=== PATIENT | male | born 1975 | race Caucasian/White ===

== ENCOUNTER 2023-08-09 08:27 | Emergency (ER) | payer OTHER ==
--- OUTSIDE RECORDS SUMMARY | 2023-08-09 08:30 | XMS REPORT | Continuity of Care Document ---
:1975 Author Organization [facility] t Address [address] [place] [address] Care Team Providers Name Role Phone Uma Johansen Attending Clinician Unavailable Kenrick Celaya Attending Clinician Unavailable Kenrick Celaya Admitting Clinician Unavailable UMA JOHANSEN Admitting Clinician Unavailable Payers Payer Name Policy Type Policy Number Effective Date Expiration Date S [place] [id number] 2021 [facility] 00:[facility]00 - [facility]) [place] [address] [id number] 2021 [facility] 00:00:00 - [facility]) [place] [address] [id number] 2020 2021 [facility] 00:00:00 00:00:00 [place] [address] [id number] 2020 2021 [facility] 00:00:00 00:00:00 [facility] Problems Condition Condition Condition Status Onset Resolution Last Treating Co mments Source Name Details Category Date Date Treatment Clinician Date Hypertensi Hypertensi Problem Active C ommon on on [facility] Disturbanc Disturbanc Problem Active C ommon e in sleep e in sleep Sp cici behavior behavior - [facility] [id number] Hyperglyce Problem Active Com mon shelly [facility] Counseling Tobacco Problem Active Comm on about abuse Spirit tobacco counseling - [facility] use [facility] [id number] Prediabete Problem Active Co mmon s Spirit [facility] [id number] Abnormal Problem Active Comm on RBC Spirit indices [facility] [id number] Abnormal Problem Active Comm on liver [facility] function - [facility] test [facility] [id number] Elevated Problem Active Comm on serum Spirit creatinine [facility] Allergies, Adverse Reactions, Alerts Allergy Allergy Status Severity Reaction(s) Onset Inactive Treating Comm ents Source Name Type Date Date Clinician No Known DA Active U 2020-10 [facility] 00 [facility] No Known DA Active U 2020-10 [facility] Allergie 0-22 [facility] 00 [facility] Social History Social Habit Start Date Stop Date Quantity Comments Source History of Tobacco Current Smoker Co mmon [facility] - [facility] Use [facility] Sex Assigned At Com [facility] Smoking Status Start Date Stop Date Source Current Smoker 2021-12-12 00:00:00 Common Spiri t [facility] Medications Ordered Filled Start Stop Current Ordering Indication Dosage Frequency Signature Comments Components Source Medication Medication Date Date Medication? Clinician (SIG) Name Name Micardis Micardis Yes Roxane 1 tablet Common HCT HCT 6-05 Millender Spirit 00:00: - [facility] 00 [facility] Micardis Micardis No 1{table QD Micardis HCT 80-25 HCT 80-25 6-05 t} HCT 80-25 MG MG 00:00: MG 00 Micardis Micardis No 1{table QD Micardis HCT 80-25 HCT 80-25 6-05 t} HCT 80-25 MG MG 00:00: MG 00 Losartan Losartan 2018-0 Yes Roxane 1 tablet Common Potassium-H Potassium-H 9-24 Millender Spirit CTZ CTZ 00:00: - [facility] 00 [facility] Micardis Micardis No 1{table QD Micardis HCT 80-25 HCT 80-25 t} HCT 80-25 MG MG MG Triamcinolo Triamcinolo No 1{appli BID Triamcinol ne & ne & cation} one & Emollient Emollient Emollient 0.1 % 0.1 % 0.1 % PriLOSEC 20 PriLOSEC 20 No 1{capsu QD PriLOSEC MG MG le} 20 MG Ketoconazol Ketoconazol No 1{appli QD Ketoconazo e 2 % e 2 % cation_ le 2 % to_affe cted_ar ea} Micardis Micardis No 1{table QD Micardis HCT 80-25 HCT 80-25 t} HCT 80-25 MG MG MG Triamcinolo Triamcinolo No 1{appli BID Triamcinol ne & ne & cation} one & Emollient Emollient Emollient 0.1 % 0.1 % 0.1 % Micardis Micardis No 1{table QD Micardis HCT 80-25 HCT 80-25 t} HCT 80-25 MG MG MG PriLOSEC 20 PriLOSEC 20 No 1{capsu QD PriLOSEC MG MG le} 20 MG Hydrochloro Hydrochloro Yes Roxane 1 tablet Common thiazide thiazide Millender in the Spirit morning - [facility] Amoxicillin Amoxicillin Yes Roxane 1 tablet Common -Pot -Pot [facility]ender Spirit Clavulanate Clavulanate - [facility] Ketoconazol Ketoconazol Yes Roxane 1 Common e e Millender applicatio Spir it n to - [facility] affected [facility] Diovan Diovan Yes Roxane 1 tablet Common Millender Spirit - [facility] Prilosec Prilosec Yes Roxane 1 capsule C ommon Millender Spirit - [facility] Triamcinolo Triamcinolo Yes Roxane 1 Common ne & ne & Millender applicatio Spir it Emollient Emollient n - [facility] Tessalon Tessalon Yes Roxane 1 capsule C ommon Perles Perles Millender as needed S pirit - [facility] Diovan HCT Diovan HCT Yes Roxane 1 tablet Common Millender [facility] Triamcinolo Triamcinolo No 1{appli BID Triamcinol ne & ne & cation} one & Emollient Emollient Emollient 0.1 % 0.1 % 0.1 % PriLOSEC 20 PriLOSEC 20 No 1{capsu QD PriLOSEC MG MG le} 20 MG Ketoconazol Ketoconazol No 1{appli QD Ketoconazo e 2 % e 2 % cation_ le 2 % to_affe cted_ar ea} Triamcinolo Triamcinolo No 1{appli BID Triamcinol ne & ne & cation} one & Emollient Emollient Emollient 0.1 % 0.1 % 0.1 % PriLOSEC 20 PriLOSEC 20 No 1{capsu QD PriLOSEC MG MG le} 20 MG Ketoconazol Ketoconazol No 1{appli QD Ketoconazo e 2 % e 2 % cation_ le 2 % to_affe cted_ar ea} PriLOSEC 20 PriLOSEC 20 No 1{capsu QD PriLOSEC MG MG le} 20 MG Ketoconazol Ketoconazol No 1{appli QD Ketoconazo e 2 % e 2 % cation_ le 2 % to_affe cted_ar ea} Vital Signs Vital Name Observation Time Observation Value Comments Source height 2021-12-13 08:20:00 71.00 [in_i] [facility] weight 2021-12-13 08:20:00 178 [lb_av] [facility] temperature 2021-12-13 08:20:00 98.6 [degF] [facility] bmi 2021-12-13 08:20:00 24.82 kg/m2 [facility] oximetry 2021-12-13 08:20:00 97 % [facility] respiratory rate 2021-12-13 08:20:00 18 /min Comm on [facility] blood pressure 2021-12-13 08:20:00 138 mm[Hg] Common [facility] - systolic [facility] blood pressure 2021-12-13 08:20:00 80 mm[Hg] Common Spirit - diastolic [facility] height 2021-06-13 14:20:00 71.00 [in_i] Common [facility] weight 2021-06-13 14:20:00 177 [lb_av] Common [facility] temperature 2021-06-13 14:20:00 97.4 [degF] [facility] bmi 2021-06-13 14:20:00 24.68 kg/m2 [facility] oximetry 2021-06-13 14:20:00 99 % [facility] respiratory rate 2021-06-13 14:20:00 16 /min Comm on [facility] blood pressure 2021-06-13 14:20:00 137 mm[Hg] Common [facility] - systolic [facility] blood pressure 2021-06-13 14:20:00 85 mm[Hg] Common Spirit - diastolic [facility] height 2020-12-14 09:00:00 71.00 [in_i] [facility] weight 2020-12-14 09:00:00 181.6 [lb_av] [facility] temperature 2020-12-14 09:00:00 98.1 [degF] Common [facility] bmi 2020-12-14 09:00:00 25.33 kg/m2 Common [facility] oximetry 2020-12-14 09:00:00 97 % [facility] respiratory rate 2020-12-14 09:00:00 18 /min Comm on [facility] blood pressure 2020-12-14 09:00:00 132 mm[Hg] Common [facility] - systolic [facility] blood pressure 2020-12-14 09:00:00 80 mm[Hg] Common [facility] - [facility] Procedures This patient has no known procedures. Encounters Start End Encounter Admission Attending Care Care Encounter Source Date/Time Date/Time Type Type Clinicians Facility Department ID 2023-04-16 Outpatient Gato STDAYANARA STLMLC [id number] Common 16:29:00 Uma 24123 [facility] 2023-03-26 Outpatient Gato STDAYANARA STLMLC [id number] Common 16:19:00 Uma [id number] [facility] 2022-06-10 Outpatient Gato STDAYANARA STLMLC [id number] Common 14:18:00 Uma 84552 [facility] 2021-11-13 Outpatient Gato STDAYANARA STLMLC [id number] Common 12:34:36 Uma 18044 [facility] 2021-11-13 Outpatient Gato STDAYANARA STLC [id number] Common 12:26:02 Uma [id number] [facility] 2021-12-13 2021-12-13 [facility] [id number] Co mmon 00:00:00 00:00:00 VISIT EST Spir it PT LEVEL 3 [facility] 2021-09-19 2021-09-20 Inpatient YURIDIA Mishra OBSE [id number] [facility] 07:27:00 11:24:00 Kenrick 08 [facility] 2021-08-09 2021-08-09 Outpatient JOSE ENRIQUE Celaya [facility] [id number] [facility] 18:49:00 18:49:00 Kenrick 03 [facility] 2021-08-09 2021-08-09 Outpatient DE Celaya LABO [id number] [facility] 16:57:00 16:57:00 Kenrick 00 [facility] 2021-08-09 2021-08-09 Inpatient YURIDIA Mishra SURG [id number] [facility] 13:30:00 13:30:00 Kenrick 64 [facility] 2021-08-09 2021-08-09 Outpatient YURIDIA Mishra RADI [id number] [facility] 10:21:00 10:21:00 Kenrick 40 [facility] 2021-07-18 2021-07-18 (TEL) STLMLC STLMLC [id number] Co mmon 00:00:00 00:00:00 Spirit - [facility] 2021-06-13 2021-06-13 OFFICE STLMLC STLMLC [id number] Co mmon 00:00:00 00:00:00 VISIT Spirit ESTAB PT - CHI LEVEL 4 [facility] 2021-05-06 2021-05-06 (TEL) STLMLC STLMLC [id number] Co mmon 00:00:00 00:00:00 Spirit - [facility] 2020-12-14 2020-12-14 OFFICE STLMLC STLMLC [id number] Co mmon 00:00:00 00:00:00 VISIT EST Spir it PT LEVEL 3 - [facility] 2019-09-23 2019-09-23 Out[facility] [id number] Common 11:00:00 11:00:00 t [facility] [address] [facility] 2019-08-23 2019-08-23 Outpatient [facility] [id number] Common 08:56:00 08:56:00 t [facility] [address] Sp[address] [facility] 2018-12-29 2018-12-29 Outpatient [facility] [id number] Common 16:30:00 16:30:00 t [facility] [address] Sp[address] [facility] 2018-10-07 2018-10-07 Outpatient [facility] [id number] Common 09:30:00 09:30:00 t [facility] [address] [facility] 2018-10-06 2018-10-06 Outpatient [facility] [id number] Common 14:50:00 14:50:00 t [facility] [address] [facility] 2018-07-09 2018-07-09 Outpatient [facility] [id number] Common 13:30:00 13:30:00 t [facility] [address] [facility] 2018-04-12 2018-04-12 Outpatient [facility] [id number] Common 08:34:00 08:34:00 [facility] Spir [address] Road [facility] 2018-04-09 2018-04-09 Outpatient Chano Maddent [id number] Common 15:15:00 15:15:[address] [facility] it Road [facility] 2018-03-12 2018-03-12 Outpatient Chano Maddent [id number] Common 10:05:00 10:05:00 [facility] it [facility] 2018-02-19 2018-02-19 Outpatient Chano Maddent [id number] Common 15:45:00 15:45:00 [facility] Results Test Description Test Time Test Comments Results Result Comments Source BASIC METABOLIC PANEL 2021-09-20 07:05:00 Test Item Value Reference Range Interpretation Comme nts SODIUM (test code = NA) 137 mmol/L 136-145 N POTASSIUM (test code = K) 4.5 mmol/L 3.5-5.1 N CHLORIDE (test code = CL) 100.0 mmol/L 98-107 N CARBON DIOXIDE (test code = 28.7 mmol/L 21-32 N CO2) GLUCOSE (test code = GLU) 95 mg/dL 70-110 N BLOOD UREA NITROGEN (test code 10 mg/dL 7-18 N = BUN) GLOMERULAR FILTRATION RATE 80.8 >60 U nit of measure: mL/min/1.73 (test code = GFR) [id number] e Range:Healthy Adults >90 mL/m in/1.73 m2 For Chronic Kidney Disease: Stage II Mild Decrea se in GFR 60-90 Stage III Moderate Decrease in GFR 30-59 Stage IV Severe Decre ase in GFR 15-29 Stage V K idney Failure <15 CREATININE (test code = CREAT) 1.00 mg/dL 0.55-1.30 N CALCIUM (test code = CA) 8.5 mg/dL 8.2-10.1 N CBC W/AUTO [id number] 05:55:00 Test Item Value Reference Range Interpretation Comments WHITE BLOOD CELL (test code = WBC) 12.6 K/mm3 5.7-10.5 H RED BLOOD CELL (test code = RBC) 3.46 M/mm3 4.2-5.4 L HEMOGLOBIN (test code = HGB) 12.0 g/dL 12-16 N HEMATOCRIT (test code = HCT) 35.1 % 37-47 L MEAN CELL VOLUME (test code = MCV) 101 fL 80-98 H MEAN CELL HGB (test code = MCH) 34.7 pg 27-34 H MEAN CELL HGB CONCENTRATION (test 34.2 g/dL 30.8-34.1 H code = MCHC) RED CELL DISTRIBUTION WIDTH (test 12.4 % 11-16 N code = RDW) PLT (test code = PLT) 251 K/mm3 130-400 N MEAN PLATELET VOLUME (test code = 11.0 fL 8.9-12.1 N MPV) NEUTROPHIL % (test code = NT%) 65.3 % 45-70 N LYMPHOCYTE % (test code = LY%) 22.7 % 20-40 N MONOCYTE % (test code = MO%) 9.0 % 3-10 N EOSINOPHIL % (test code = EO%) 1.3 % 1-5 N BASOPHIL % (test code = BA%) 0.6 % 0.0-1.1 N NEUTROPHIL # (test code = NT#) 8.23 K/mm3 2.00-7.50 H LYMPHOCYTE # (test code = LY#) 2.87 K/mm3 1.50-4.00 N MONOCYTE # (test code = MO#) 1.14 K/mm3 0.2-0.8 H EOSINOPHIL # (test code = EO#) 0.16 K/mm3 0.04-0.4 N BASOPHIL # (test code = BA#) 0.08 K/mm3 0.02-0.10 N MANUAL DIFF REQUIRED (test code = NO MANUAL DIFF MDIFF) NUCLEATED RED BLOOD CELL (test 0 % 0-0 N code = NRBC) C REACTIVE [id number] 22:10:00 Test Item Value Reference Range Interpretation Comments C REACTIVE PROTEIN (test code = < 0.2 mg/dL <0.9 CRP) ACUTE HEPATITIS [id number] 22:10:00 Test Item Value Reference Range Interpretation Comments AB HEPATITIS A IGM (test code = NONREACTIVE NONREACTIVE HAVMAB) AG HEPATITIS B SURFACE (test code NONREACTIVE NONREACTIVE = HBSAG) AB HEPATITIS B CORE IGM (test NONREACTIVE NONREACTIVE code = HBCMAB) AB HEPATITIS C (test code = NONREACTIVE NONREACTIVE HCVAB) SIGNAL TO CUTOFF (test code = < 0.02 <0.80 CUTOFF) AB HIV 22:10:00 Test Item Value Reference Range Interpretation Comments AB HIV 1 (test code NONREACTIVE NONREACTIVE Done by [employer] = HIV1AB) 4th Gen HIV Ag/ Ab Combo Screen ACUTE HEPATITIS [id number] 22:10:00 Test Item Value Reference Range Interpretation Comments AB HEPATITIS A IGM (test code = NONREACTIVE NONREACTIVE HAVMAB) AG HEPATITIS B SURFACE (test code NONREACTIVE NONREACTIVE = HBSAG) AB HEPATITIS B CORE IGM (test NONREACTIVE NONREACTIVE code = HBCMAB) AB HEPATITIS C (test code = NONREACTIVE NONREACTIVE HCVAB) SIGNAL TO CUTOFF (test code = <0.02 <0.80 N CUTOFF) AB HIV 1 22:10:00 Test Item Value Reference Range Interpretation Comments AB HIV 1 2 (test NONREACTIVE NONREACTIVE Done by [employer] code = IAS14CF) 4th Gen HIV Ag/Ab Combo Screen CBC W/AUTO [id number] 17:17:00 Test Item Value Reference Range Interpretation Comments WHITE BLOOD CELL (test code = WBC) 10.2 K/mm3 5.7-10.5 N RED BLOOD CELL (test code = RBC) 4.29 M/mm3 4.2-5.4 N HEMOGLOBIN (test code = HGB) 14.2 g/dL 12-16 N HEMATOCRIT (test code = HCT) 41.2 % 37-47 N MEAN CELL VOLUME (test code = MCV) 96 fL 80-98 N MEAN CELL HGB (test code = MCH) 33.1 pg 27-34 N MEAN CELL HGB CONCENTRATION (test 34.5 g/dL 30.8-34.1 H code = MCHC) RED CELL DISTRIBUTION WIDTH (test 13.2 % 11-16 N code = RDW) PLT (test code = PLT) 279 K/mm3 130-400 N MEAN PLATELET VOLUME (test code = 11.0 fL 8.9-12.1 N MPV) NEUTROPHIL % (test code = NT%) 52.1 % 45-70 N LYMPHOCYTE % (test code = LY%) 35.0 % 20-40 N MONOCYTE % (test code = MO%) 9.2 % 3-10 N EOSINOPHIL % (test code = EO%) 2.3 % 1-5 N BASOPHIL % (test code = BA%) 1.0 % 0.0-1.1 N NEUTROPHIL # (test code = NT#) 5.33 K/mm3 2.00-7.50 N LYMPHOCYTE # (test code = LY#) 3.58 K/mm3 1.50-4.00 N MONOCYTE # (test code = MO#) 0.94 K/mm3 0.2-0.8 H EOSINOPHIL # (test code = EO#) 0.23 K/mm3 0.04-0.4 N BASOPHIL # (test code = BA#) 0.10 K/mm3 0.02-0.10 N MANUAL DIFF REQUIRED (test code = NO MANUAL DIFF MDIFF) NUCLEATED RED BLOOD CELL (test 0 % 0-0 N code = NRBC) SED [id number] 17:17:00 Test Item Value Reference Range Interpretation Comments SED RATE (test code = SEDW) 17 mm/hr 0-15 H COMPREHENSIVE METABOLIC [id number] 16:53:00 Test Item Value Reference Range Interpretation Comments SODIUM (test code = 138 mmol/L 136-145 N NA) POTASSIUM (test code = 4.4 mmol/L 3.5-5.1 N K) CHLORIDE (test code = 98.0 mmol/L 98-107 N CL) CARBON DIOXIDE (test 29.5 mmol/L 21-32 N code = CO2) GLUCOSE (test code = 100 mg/dL 70-110 N GLU) BLOOD UREA NITROGEN 25 mg/dL 7-18 H (test code = BUN) GLOMERULAR FILTRATION 67.4 >60 Unit o f measure: RATE (test code = GFR) mL/mi n/1.73 [id number] Range:Healthy A dults >90 mL/min/1.73 m2 For Chronic Kid cherelle Disease: Stage II Mild Decrease i n GFR 60-90 Stage III Moderate Decrea se in GFR 30-59 Stage IV Severe Decrease in GFR 15-29 Stage V Kidney Failure <15 CREATININE (test code 1.17 mg/dL 0.55-1.30 N = CREAT) TOTAL PROTEIN (test 8.3 g/dL 6.4-8.2 H code = PROT) ALBUMIN (test code = 4.5 g/dL 3.4-5.0 N ALB) GLOBULIN (test code = 3.8 g/dL 2.2-4.2 N GLOB) ALBUMIN/GLOBULIN RATIO 1.2 0.7-2.0 N (test code = A/G) CALCIUM (test code = 10.4 mg/dL 8.2-10.1 H CA) BILIRUBIN TOTAL (test 0.90 mg/dL 0.2-1.00 N code = BILT) SGOT/AST (test code = 108.0 U/L 15-37 H AST) SGPT/ALT (test code = 157.0 U/L 12-78 H VERIFI ED BY REPEAT ALT) ANALYSIS.CRITIC AL VALUE CALLED TO BRILEYREAD BACK & CONFIRMED? YESB Leslie MckeonLAB.CD [id number] FAX ED TO THE DOCTOR'S OFFICE.Please n ote new normal rang e. ALKALINE PHOSPHATASE 64 U/L 46-116 N TOTAL (test code = ALKP) PROTHROMBIN [id number] 16:21:00 Test Item Value Reference Range Interpretation Comments PROTHROMBIN TIME 10.5 secs 10.1-12.5 N PATIENT (test code = PTP) INTERNATIONAL NORMAL 0.92 <2.0 RECOMME NDED THERAPEUTIC RATIO (test code = RANGE FOR ORAL INR) ANTICOAGULANTTR EATMENT: CONDITION INRPr ophylaxis of venous throm bosis in 2.0 - 3.0 high- risk medical or surg ical patientsTreatme nt of venous thrombos is 2.0 - 3.0Prevention o f embolism 2.0 - 3.0Prevention o f recurrent embol ism, or 3.0 - 4.5 patie nts with mechanical pros thetic intravascular v rondon IS PATIENT ON ANTICOAGULANTS ? NHas Lab been notified if Patient is on Heparin Drip? NOIf Yes, orderCBC, OCCULT BLOOD, PT every other day NTHROMBOPLASTIN TIME [id number] 16:21:00 Test Item Value Reference Range Interpretation Comments PTT ACTIVATED (test code = APTT) 31.4 secs 24.9-37.0 N IS PATIENT ON ANTICOAGULANTS ? NHas Lab been notified if Patient is on Heparin Drip? NOIf Yes, orderCBC, OCCULT BLOOD, PT every other day N- MRI LOW EXT W/O CONT [id number] 12:44:00 [facility] 1975 Sex: M Patient Name: RAMAN MARTINEZ Unit No: [id number] EXAMS: CPT CODE: [id number] MRI LOW EXT W/[place] [address] TECHNIQUE: Multiplanar multisequence images of the right leg were obtained without the administration of intravenous contrast. COMPARISON STUDY: None available. FINDINGS: Right proximal tibial hardware results in extensive metallic susceptibility artifact, obscuring much of the right knee. An obliquely oriented fracture is seen within the medial aspect of the proximal tibia, likely extending to the lateral tibia as well. No significant osseous edema is visualized. No other fracture is identified. The right distal femur and patella are intact. Musculature is normal in size and signal intensity. IMPRESSION: Right proximal tibial fracture, largely obscured by metallic artifact. at 1244 Reported and signed by: Darío Reyna M.D. CC: Technologist: NITZA MOBLEY, MITALI Transcribed D/ (1244) [facility]: RAMAN MARTINEZ [address] [facility] [address] PHYS: BRIMA.[email or web address] - Kenrick Celaya MD : 1975 AGE: 46 SEX: M [place], [place] [address] LOC: Y.PRE PHONE #: [phone] EXAM DATE: 08/09/2021 STATUS: PRE [facility] FAX #: [phone] RAD #: D/C DT PAGE 1 Signed Report Patient Name: RAMAN MARTINEZ Unit No: [id number] EXAMS: CPT CODE: [id number] MRI LOW EXT W/[place] [address] (Continued) Orig Print D/T: S: 08/09/2021 (1247) [facility] NAME: RAMAN MARTINEZ [address] [facility] PHYS: GLORYIMA. - Kenrick Celaya MD : 1975 AGE: 46 SEX: M [place], [place] [address] LOC: Y.PRE PHONE #: [phone] EXAM DATE: 08/09/2021 STATUS: PRE SDC FAX #: [phone] RAD #: D/C DT PAGE 2 Signed ReportLipid [id number] 00:00:00 Test Item Value Reference Range Interpretation Comments Cholesterol, Total (test code = 3-3) 172 100-199 Triglycerides (test code = 2571-8) 66 0-149 HDL Cholesterol (test code = 5-9) 94 >39 Hemoglobin [id number] 00:00:00 Test Item Value Reference Range Interpretation Comments Hemoglobin A1c (test code = 4548-4) 5.9 4.8-5.6 Comp. Metabolic Panel (14) (CMP)2020-12-20 00:00:00 Test Item Value Reference Range Interpretation Comments Glucose (test code = 2345-7) 91 65-99 BUN (test code = 3094-0) 12 6-24 Creatinine (test code = 2160-0) 0.98 0.76-1.27 eGFR If NonAfricn Am (test code = 93 >59 95415-0) eGFR If Africn Am (test code = 48280-0) 108 >59 BUN/Creatinine Ratio (test code = 12 -20 3097-3) Sodium (test code = 2951-2) 141 134-144 Potassium (test code = 2823-3) 4.4 3.5-5.2 Chloride (test code = 2075-0) 99 96-106 Carbon Dioxide, Total (test code = -2028-06) Calcium (test code = 38701-6) 9.5 8.7-10.2 Protein, Total (test code = 2885-2) 7.4 6.0-8.5 Albumin (test code = 1751-7) 4.5 4.0-5.0 Globulin, Total (test code = 03640-5) 2.9 1.5-4.5 A/G Ratio (test code = 1759-0) 1.6 1.2-2.2 Bilirubin, Total (test code = 1974-2) 0.6 0.0-1.2 Alkaline Phosphatase (test code = 88 39-117 6768-6) AST (SGOT) (test code = 1920-8) 103 0-40 ALT (SGPT) (test code = 1742-6) 67 0-44
[2023-08-09] MEDS ORDERED: IBUPROFEN 400 MG TAB ONE (09:00)
--- NOTE | 2023-08-09 09:33 | RAD REPORT ---
EXAM DESCRIPTION: RAD - Forearm Left - 08/09/2023 9:27 am CLINICAL HISTORY: PAIN COMPARISON: No comparisons FINDINGS/IMPRESSION: No acute fracture. No malalignment. No significant focal degenerative changes.
--- NOTE | 2023-08-09 09:36 | ER ---
Nurse's Notes [facility] Name: Raman Martinez Age: 48 yrs Sex: Male : 1975 Arrival Date: 08/09/2023 Time: 08:27 Bed 6 Private MD: Diagnosis: Other specified sprain of left wrist Presentation: 08/09 08:36 Chief complaint: Tripped over baby gate and fell onto left hand last night, c/o left hb wrist pain 10/. Coronavirus screen: At this time, the client does not indicate any symptoms associated with coronavirus-19. Ebola Screen: No symptoms or risks identified at this time. Initial Sepsis Screen: Does the patient meet any 2 criteria? No. Patient's initial sepsis screen is negative. Does the patient have a suspected source of infection? No. Patient's initial sepsis screen is negative. Risk Assessment: Do you want to hurt yourself or someone else? Patient reports no desire to harm self or others. Onset of symptoms was August 08, 2023. 08:36 Method Of Arrival: Ambulatory hb 08:36 Acuity: JASON 3 hb Historical: - Allergies: 08:39 No Known Allergies; hb - PMHx: 08:39 Hypertension; hb - Immunization history:: Adult Immunizations up to date. - Social history:: Smoking status: Patient reports the use of cigarette tobacco products, smokes one-half pack cigarettes per day. Screenin:48 [facility] ED Fall Risk Assessment (Adult) History of falling in the last 3 months, ld1 including since admission No falls in past 3 months (0 pts). [facility] ED Fall Risk Assessment (Adult) History of falling in the last 3 months, including since admission Yes- single mechanical fall (1 pt). Abuse screen: Denies threats or abuse. Denies injuries from another. Nutritional screening: No deficits noted. Tuberculosis screening: No symptoms or risk factors identified. Assessment: 08:47 General: Appears in no apparent distress. uncomfortable, Behavior is calm, cooperative, ld1 appropriate for age. Pain: Complains of pain in dorsal aspect of left forearm and left wrist Pain does not radiate. Pain currently is 8 out of 10 on a pain scale. at worst was 10 out of 10 on a pain scale. Quality of pain is described as throbbing, Pain began 1 hour ago. Is continuous. Neuro: Level of Consciousness is awake, alert, obeys commands, Oriented to person, place, time, situation. Cardiovascular: Capillary refill < 3 seconds Patient's skin is warm and dry. Respiratory: Airway is patent Respiratory effort is even, unlabored. GI: Abdomen is flat, non-distended. : No signs and/or symptoms were reported regarding the genitourinary system. EENT: No signs and/or symptoms were reported regarding the EENT system. Derm: No signs and/or symptoms reported regarding the dermatologic system. Musculoskeletal: Reports pain in left arm. Vital Signs: 08:36 BP 165 / 108; Pulse 92; Resp 16; Temp 98.1(TE); Pulse Ox 97% on R/A; Weight 77.11 kg; hb Height 5 ft. 11 in. ; Pain 10/10; 08:47 BP 165 / 108; Pulse 89; Resp 18; Pulse Ox 98% on R/A; Pain 10/10; ld1 09:24 BP 162 / 107; Pulse 89; Resp 19; Pulse Ox 97% on R/A; Pain 6/10; tm6 08:36 Body Mass Index 23.71 (77.11 kg, 180.34 cm) hb 08:36 Pain Scale: Adult hb 08:47 Pain Scale: Adult ld1 09:24 Pain Scale: Adult tm6 ED Course: 08:30 Patient arrived in ED. ts1 08:33 Yara Ugarte, DONALD is Primary Nurse. ld1 08:38 Debra Kimbrough FNP-C is PHCP. kb 08:38 Russ Gonzales MD is Attending Physician. kb 08:39 Triage completed. hb 08:40 Arm band placed on. hb 08:47 Patient has correct armband on for positive identification. Placed in gown. Bed in low ld1 position. Call light in reach. Side rails up X2. Pulse ox on. NIBP on. Door closed. Noise minimized. Warm blanket given. 08:47 No provider procedures requiring assistance completed. ld1 09:29 Forearm Left XRAY In Process Unspecified. EDMS 10:18 Provided Education on: splint. tm6 10:18 Patient did not have IV access during this emergency room visit. tm6 Administered Medications: 08:49 Drug: Ibuprofen PO 800 mg PO once Route: PO; ld1 Medication: 08:47 VIS not applicable for this client. ld1 Outcome: 09:35 Discharge ordered by MD. ibarra 10:17 Discharged to home ambulatory, tm6 10:17 Condition: stable 10:17 Discharge instructions given to patient, Instructed on discharge instructions, follow up and referral plans. Demonstrated understanding of instructions, follow-up care, splint care, 10:19 Patient left the ED. tm6 Signatures: Dispatcher [employer] EDAK Debra Kimbrough, ARTEM-C COMBUSTION ANALYST-Brittany Wilder, RN RN Yara Ugarte RN RN ld1 Allie Pastrana, PAS PAS ts1 Madiha Yusuf RN RN tm6
--- NOTE | 2023-08-09 09:36 | EDPHYS ---
Physician Documentation [facility] Name: Raman Martinez Age: 48 yrs Sex: Male : 1975 Arrival Date: 08/09/2023 Time: : Bed 6 Private MD: ED Physician Russ Gnozales HPI: 08/09 09:15 This 48 yrs old Male presents to ER via Ambulatory with complaints of Arm Pain, Fall kb Injury. 09:15 The patient or guardian complains of decreased range of motion, injury, pain, swelling, kb tenderness. The complaints affect the left forearm. Context: The problem was sustained at a relative's house, resulted from a fall. Onset: The symptoms/episode began/occurred yesterday. Treatment prior to arrival includes: no previous treatment. Modifying factors: The symptoms are alleviated by nothing. the symptoms are aggravated by movement. Associated signs and symptoms: Pertinent positives: decreased range of motion, pain, swelling. Severity of symptoms: At their worst the symptoms were mild, moderate, in the emergency department the symptoms are unchanged. The patient has not experienced similar symptoms in the past. The patient has not recently seen a physician. Pt reports he was trying to step over a dog gait at his son's house, tripped and fell onto outstretched left arm. c/o pain to left forearm/wrist. Historical: - Allergies: 08:39 No Known Allergies; hb - PMHx: 08:39 Hypertension; hb - Immunization history:: Adult Immunizations up to date. - Social history:: Smoking status: Patient reports the use of cigarette tobacco products, smokes one-half pack cigarettes per day. ROS: 09:07 Constitutional: Negative for fever, chills, and weight loss, kb 09:07 MS/extremity: Positive for pain, of the left forearm, 09:07 All other systems are negative, Exam: 09:07 Constitutional: This is a well developed, well nourished patient who is awake, alert, kb and in no acute distress. Head/Face: Normocephalic, atraumatic. ENT: Moist Mucous membranes Cardiovascular: Regular rate Respiratory: Respirations even and unlabored. No increased work of breathing. Talking in full sentences Abdomen/GI: Soft, non-tender. No distention Skin: Warm, dry with normal turgor. Normal color. Neuro: Awake and alert, GCS 15, oriented to person, place, time, and situation. Moves all extremities. Normal gait. 09:07 Musculoskeletal/extremity: Extremities: grossly normal except: noted in the left forearm: pain, swelling, tenderness, ROM: limited active range of motion due to pain, Circulation is intact in all extremities. Sensation intact. Vital Signs: 08:36 BP 165 / 108; Pulse 92; Resp 16; Temp 98.1(TE); Pulse Ox 97% on R/A; Weight 77.11 kg; hb Height 5 ft. 11 in. ; Pain 10/10; 08:47 BP 165 / 108; Pulse 89; Resp 18; Pulse Ox 98% on R/A; Pain 10/10; ld1 09:24 BP 162 / 107; Pulse 89; Resp 19; Pulse Ox 97% on R/A; Pain 6/10; tm6 08:36 Body Mass Index 23.71 (77.11 kg, 180.34 cm) hb 08:36 Pain Scale: Adult hb 08:47 Pain Scale: Adult ld1 09:24 Pain Scale: Adult tm6 MDM: 08:39 Patient medically screened. kb 09:15 Differential diagnosis: dislocation, closed fracture, contusion. Data reviewed: vital kb signs, nurses notes. 09:35 Counseling: I had a detailed discussion with the patient and/or guardian regarding the kb historical points, exam findings, and any diagnostic results supporting the discharge/admit diagnosis, radiology results, the need for outpatient follow up, a family practitioner, a orthopedic surgeon, to return to the emergency department if symptoms worsen or persist or if there are any questions or concerns that arise at home. 08/09 08:42 Order name: Forearm Left XRAY; Complete Time: 09:34 kb 08/09 09:36 Order name: Wrist Splint; Complete Time: 10:16 kb Administered Medications: 08:49 Drug: Ibuprofen PO 800 mg PO once Route: PO; ld1 Disposition: 10:20 Co-signature as Attending Physician, Russ Gonzales MD I reviewed the patient's care rn provided by the Advanced Practice Provider and agree with the diagnosis and treatment plan. Disposition Summary: 08/09/23 09:35 Discharge Ordered Notes: Location: Home kb Condition: Stable kb Diagnosis - Other specified sprain of left wrist kb Followup: kb - With: Emergency Department - When: As needed - Reason: Worsening of condition Followup: kb - With: Private Physician - When: 2 - 3 days - Reason: Recheck today's complaints, Continuance of care, Re-evaluation by your physician Discharge Instructions: - Discharge Summary Sheet kb - Wrist Sprain, Adult kb Forms: - Medication Reconciliation Form kb - Thank You Letter kb - Antibiotic Education kb - Prescription Opioid Use kb - Patient Portal Instructions kb - Leadership Thank You Letter fred Signatures: Dispatcher [employer] EDDebra Knowles, CHIP PERSON-C ARTEM-Russ Man MD MD rn Baxter, Heather RN RN Yara Ugarte RN RN ld1
== END 2023-08-09 10:19 | disposition home or self-care (01) ==
LOC: ER 08:27
DX: S63.592A Other specified sprain of left wrist, initial encounter (principal)
CPT/HCPCS: 99284

== ENCOUNTER 2025-03-02 17:48 | Emergency (ER) | payer OTHER ==
--- OUTSIDE RECORDS SUMMARY | 2025-03-02 17:52 | XMS REPORT | Continuity of Care Document ---
Author Name Unknown Address [address] [facility] [address] [place] [address] [facility] Address [address] [facility] [place] [address] Care Team Providers Care Disability Examiner Name Role Phone PCP, PATIENT DOES NOT HAVE A Primary Care Physic bobbi Unavailable Uma Johansen Attending Clinician Unavailable SARAH BECKETT Attending Clinician UnavailNATALY Davila Attending Clinician Unavailable LAB90 Attending Clinician Unavailable Kenrick Celaya Attending Clinician Unavailable Kenrick Celaya Admitting Clinician Unavailable UMA JOHANSEN Admitting Clinician Unavailable Payers Payer Name Policy Type Policy Number Effective Date Expirati on Date Source JOSELO THOMPSON SILVER 5 O MANAGER CRISIS 94 ON 9 [id number] 2024 00:00:00 [facility] 53 [id number] [facility] C1 [id number] 2021 00:00:00 [facility] C1 [id number] 2021 00:00:00 [facility] C1 [id number] 2020 00:00:00 2021 00:00:00 [facility] C1 [id number] 2020 00:00:00 2021 00:00:00 [facility] Problems Condition Name Condition Details Condition Category Status Onset Date Resolution Date Last Treatment Date Treating Clinician Comments Source Well adult exam Well adult exam Disease Active 2023-10 1 00:00: 00 Angelica Seybold - Externa l HTN (hypertens ion) HTN (hypertens ion) Disease Active Angelica Seybold - Externa l Gout Gout Disease Active Angelica Seybold - Externa l Tobacco use Tobacco use Disease Active Angelica Seybold - Externa l Alcohol use Alcohol use Disease Active Angelica Seybold - Externa l Overweight (BMI 25.0-29.9) Overweight (BMI 25.0-29.9) Disease Active Angelica Seybold - Externa l Family history of lung cancer Family history of lung cancer Disease Active Angelica Seybold - Externa l Disturbanc e in sleep behavior Disturbanc e in sleep behavior Problem Active [facility] [id number] Hyperglyce shelly Problem Active [facility] Counseling about tobacco use Tobacco abuse counseling Problem Active [facility] [id number] Prediabete s Problem Active [facility] [id number] Abnormal RBC indices Problem Active [facility] [id number] Abnormal liver function test Problem Active [facility] [id number] Elevated serum creatinine Problem Active [facility] [id number] Gastroesop hageal reflux disease without esophagiti s Problem [facility] [id number] Skin lesion Problem [facility] [id number] History of nonmelanom a skin cancer Problem [facility] Allergies, Adverse Reactions, Alerts Allergy Name Allergy Type Status Severity Reaction(s) Onset Date Inactive Date Treating Clinician Comments Source No Known Allergie s DA Active U 2020-10 00:00: 00 [facility] No Known Allergie s DA Active U 2020-10 00:00: 00 [facility] KNOWN ALLERGIE S Drug Class Active [facility] Social History Social Habit Start Date Stop Date Quantity Comments Source Sexual orientation Marc fatimah Tubbs - External History of Occupation Angelica Tubbs - External History of tobacco use Cigarette Smoker Angelica feldman - External Cigarettes smoked current (pack per day) - Reported 2024-09-02 00:00:00 2024-09-02 00:00:00 Angelica Tubbs - External Cigarette pack-years 2024-09-02 00:00:00 2024-09-02 00:00:00 Angelica Tubbs - External Tobacco use and exposure 2024-09-02 00:00:00 2024-09-02 00:00:00 Smokeless tobacco non-user Angelica Tubbs - External Alcoholic beverage intake 2024-09-02 00:00:00 2024-09-02 00:00:00 1.71 /d Angelica Tubbs - External Education 2024-07-11 00:00:00 2024-07-11 00:00:00 13 Angelica Tubbs - External History of Social function 2024-07-11 00:00:00 2024-07-11 00:00:00 Angelica Tubbs - External Sex 2024-04-27 21:43:27 2024-04-27 21:43:27 Male (finding) Angelica Tubbs - External Sex [birth year] at 1975 00:00:00 1975 00:00:00 Angelica Tubbs - External Smoking Status Start Date Stop Date Source Smokes tobacco daily 2024-09-02 00:00:00 Angelica Coyle External Medications Ordered Medication Name Filled Medication Name Start Date Stop Date Current Medication? Ordering Clinician Indication Dosage Frequency Signature (SIG) Comments Components Source Losartan Potassium (COZAAR) 100 MG oral Tablet 2023-10 00:00: 00 Yes [id number] 100mg QD Take 1 tablet (100 mg total) by mouth daily. Angelica Coyle Externa l Allopurinol 100 MG oral Tablet 07-12 00:00: 00 Yes [id number] 100mg QD Take 1 tablet (100 mg total) by mouth daily. Angelica ireland Telmisartan -HCTZ 80-25 MG oral Tablet 07-11 16:18: 05 07-11 00:00 :00 No 1{tbl} QD Take 1 tablet by mouth daily. Angelica ireland Indomethaci n 50 MG oral Capsule 07-11 16:10: 14 07-11 00:00 :00 No 50mg Take 1 capsule (50 mg total) by mouth in the morning and 1 capsule (50 mg total) in the evening. Take with meals. Angelica ireland Colchicine 0.6 MG oral Tablet 07-11 16:09: 19 07-11 00:00 :00 No .6mg QD Take 1 tablet (0.6 mg total) by mouth daily. Angelica ireland Losartan Potassium (COZAAR) 100 MG oral Tablet 07-11 00:00: 00 09-02 00:00 :00 No [id number] 100mg QD Take 1 tablet (100 mg total) by mouth daily. Angelica ireland PriLOSEC 20 MG PriLOSEC 20 MG No 1{capsu le} QD PriLOSEC 20 MG Omeprazole 40 MG Omeprazole 40 MG No Omeprazole 40 MG Immunizations Ordered Immunization Name Filled Immunization Name Date Status Comments Source Covid-19 Vaccine (TrialPay) Unknown Completed Angelica Tubbs - External Vital Signs Vital Name Observation Time Observation Value Comments S leeanne Systolic blood pressure 2024-09-02 14:49:00 126 mm[Hg] Angelica lacy - External Diastolic blood pressure 2024-09-02 14:49:00 74 mm[Hg] Angelica lacy - External Heart rate 2024-09-02 14:49:00 78 /min Ruth Tubbs - External Body temperature 2024-09-02 14:49:00 36.11 Patience Angelica Tubbs - External Respiratory rate 2024-09-02 14:49:00 18 /min Angelica Seybold - External Body height 2024-09-02 14:49:00 180.3 cm Eula ey Seybold - External Body weight 2024-09-02 14:49:00 87.998 kg Eula ey Seybold - External BMI 2024-09-02 14:49:00 27.06 kg/m2 Eula ey Seybold - External Oxygen saturation in Arterial blood by Pulse oximetry 2024-09-02 14:49:00 99 /min Angelica Celayaybo ld - External Systolic blood pressure 2024-07-11 20:57:00 140 mm[Hg] Angelica Seybo ld - External Diastolic blood pressure 2024-07-11 20:57:00 80 mm[Hg] Angelica Celayaybo ld - External Heart rate 2024-07-11 20:57:00 78 /min Ruth hood Seybold - External Body temperature 2024-07-11 20:57:00 37.06 Patience Angelica Seybold - External Respiratory rate 2024-07-11 20:57:00 18 /min Angelica Seybold - External Body height 2024-07-11 20:57:00 180.3 cm Eula ey Seybold - External Body weight 2024-07-11 20:57:00 88.905 kg Eula ey Seybold - External BMI 2024-07-11 20:57:00 27.34 kg/m2 Eula ey Seybold - External Oxygen saturation in Arterial blood by Pulse oximetry 2024-07-11 20:57:00 100 /min Angelica Cornello ld - External height 2024-03-11 08:40:00 71.00 [in_i] Com [facility] weight 2024-03-11 08:40:00 181.0 [lb_av] Co mmon [facility] temperature 2024-03-11 08:40:00 98.4 [degF] Com mon [facility] bmi 2024-03-11 08:40:00 25.24 kg/m2 Comm on [facility] oximetry 2024-03-11 08:40:00 95 % Commo n [facility] respiratory rate 2024-03-11 08:40:00 16 /min Common [facility] blood pressure systolic 2024-03-11 08:40:00 136 mm[Hg] [facility] blood pressure diastolic 2024-03-11 08:40:00 82 mm[Hg] [facility] height 2023-11-06 10:00:00 71.00 [in_i] Com [facility] weight 2023-11-06 10:00:00 186.8 [lb_av] Co mmon [facility] temperature 2023-11-06 10:00:00 97.3 [degF] Com [facility] bmi 2023-11-06 10:00:00 26.05 kg/m2 Comm on [facility] oximetry 2023-11-06 10:00:00 98 % Commo n [facility] respiratory rate 2023-11-06 10:00:00 16 /min [facility] blood pressure systolic 2023-11-06 10:00:00 137 mm[Hg] [facility] blood pressure diastolic 2023-11-06 10:00:00 80 mm[Hg] Common [facility] height 2023-04-17 08:40:00 71.00 [in_i] Com [facility] weight 2023-04-17 08:40:00 180.2 [lb_av] Co mmon [facility] temperature 2023-04-17 08:40:00 98.0 [degF] Com [facility] bmi 2023-04-17 08:40:00 25.13 kg/m2 Comm on [facility] oximetry 2023-04-17 08:40:00 96 % Commo n [facility] respiratory rate 2023-04-17 08:40:00 16 /min [facility] blood pressure systolic 2023-04-17 08:40:00 137 mm[Hg] [facility] blood pressure diastolic 2023-04-17 08:40:00 88 mm[Hg] Common [facility] height 2021-12-13 08:20:00 71.00 [in_i] Com [facility] weight 2021-12-13 08:20:00 178 [lb_av] Comm on [facility] temperature 2021-12-13 08:20:00 98.6 [degF] Com [facility] bmi 2021-12-13 08:20:00 24.82 kg/m2 Comm on [facility] oximetry 2021-12-13 08:20:00 97 % Commo n [facility] respiratory rate 2021-12-13 08:20:00 18 /min [facility] blood pressure systolic 2021-12-13 08:20:00 138 mm[Hg] Common [facility] blood pressure diastolic 2021-12-13 08:20:00 80 mm[Hg] [facility] height 2021-06-13 14:20:00 71.00 [in_i] Com [facility] weight 2021-06-13 14:20:00 177 [lb_av] Comm on [facility] temperature 2021-06-13 14:20:00 97.4 [degF] Com [facility] bmi 2021-06-13 14:20:00 24.68 kg/m2 Comm on [facility] oximetry 2021-06-13 14:20:00 99 % Commo n [facility] respiratory rate 2021-06-13 14:20:00 16 /min [facility] blood pressure systolic 2021-06-13 14:20:00 137 mm[Hg] Common [facility] blood pressure diastolic 2021-06-13 14:20:00 85 mm[Hg] [facility] height 2020-12-14 09:00:00 71.00 [in_i] Com mon [facility] weight 2020-12-14 09:00:00 181.6 [lb_av] Co mmon [facility] temperature 2020-12-14 09:00:00 98.1 [degF] Com [facility] bmi 2020-12-14 09:00:00 25.33 kg/m2 Comm on [facility] oximetry 2020-12-14 09:00:00 97 % Commo n [facility] respiratory rate 2020-12-14 09:00:00 18 /min [facility] blood pressure systolic 2020-12-14 09:00:00 132 mm[Hg] [facility] blood pressure diastolic 2020-12-14 09:00:00 80 mm[Hg] [facility] Encounters Start Date/Time End Date/Time Encounter Type Admission Type Attending [facility] Care Facility Care Department Encounter ID Source 2024-06-15 08:27:00 Outpatient Gato Uma [facility] [id number] [facility] 2023-11-06 09:47:00 Outpatient Forrest Johansena [facility] [id number] [facility] 2023-10-22 07:24:00 Outpatient Forrest Johansena [facility] [id number] [facility] 2023-04-16 16:29:00 Outpatient Forrest Johansena [facility] [id number] [facility] 2023-03-26 16:19:00 Outpatient Uma Johansen [facility] [id number] [facility] 2022-06-10 14:18:00 Outpatient Uma Johansen [facility] [id number] [facility] 2021-11-13 12:34:36 Outpatient Uma Johansen [facility] [id number] [facility] 2021-11-13 12:26:02 Outpatient Uma Johansen [facility] [id number] [facility] 2025-03-02 17:00:00 2025-03-02 17:00:00 Outpatient SARAH [facility] [id number] [facility] 2024-12-19 00:00:00 2024-12-19 00:00:00 Outpatient NATALY KEBEDE [id number] [facility] 2024-09-20 00:00:00 2024-09-20 00:00:00 Outpatient NATALY KEBEDE [id number] [facility] 2024-09-02 09:00:00 2024-09-02 09:00:00 Outpatient NATALY KEBEDE [id number] [facility] 2024-09-02 00:00:00 2024-09-02 00:00:00 Outpatient ANGELICA RUSSELL [id number] [facility] 2024-07-12 00:00:00 2024-07-12 00:00:00 Outpatient NATALY KEBEDE [id number] [facility] 2024-07-11 16:35:00 2024-07-11 16:35:00 Outpatient LAB90 ANGELICA RUSSELL [id number] [facility] 2024-07-11 16:00:00 2024-07-11 16:00:00 Outpatient NATALY KEBEDE [id number] [facility] 2024-03-11 00:00:00 2024-03-11 00:00:00 OFFICE VISIT ESTAB PT LEVEL 3 [facility] [id number] [facility] 2023-11-06 00:00:00 2023-11-06 00:00:00 OFFICE VISIT ESTAB PT LEVEL 3 [facility] [id number] [facility] 2023-04-24 00:00:00 2023-04-24 00:00:00 (TEL) STLMLC ST[facility] [id number] [facility] 2023-04-17 00:00:00 2023-04-17 00:00:00 OFFICE VISIT ESTAB PT LEVEL 3 [facility] [id number] [facility] 2023-04-07 00:00:00 2023-04-07 00:00:00 (TEL) STLMLC STL[facility]C [id number] [facility] 2021-12-13 00:00:00 2021-12-13 00:00:00 OFFICE VISIT EST PT LEVEL 3 [facility] ST[facility] [id number] [facility] 2021-09-19 07:27:00 2021-09-20 11:24:00 Inpatient Kenrick Mishra [facility] OBSE [id number] [facility] 2021-08-09 18:49:00 2021-08-09 18:49:00 Outpatient Kenrick Celaya HCAWH SIST [id number] [facility] 2021-08-09 16:57:00 2021-08-09 16:57:00 Outpatient Kenrick Celaya HCACL LABO [id number] [facility] 2021-08-09 13:30:00 2021-08-09 13:30:00 Inpatient Kenrick Mishra HCATO SURG [id number] [facility] 2021-08-09 10:21:00 2021-08-09 10:21:00 Outpatient Kenrick Mishra HCATO RADI [id number] [facility] 2021-07-18 00:00:00 2021-07-18 00:00:00 (TEL) STLMLC STL[facility]C [id number] [facility] 2021-06-13 00:00:00 2021-06-13 00:00:00 OFFICE VISIT ESTAB PT LEVEL 4 [facility]C STL[facility] [id number] [facility] 2021-05-06 00:00:00 2021-05-06 00:00:00 (TEL) STLMLC ST[facility] [id number] [facility] 2020-12-14 00:00:00 2020-12-14 00:00:00 OFFICE VISIT EST PT LEVEL 3 [facility] [id number] [facility] 2019-09-23 11:00:00 2019-09-23 11:00:[address] [facility] [id number] [facility] 2019-08-23 08:56:00 2019-08-23 08:56:[address] [facility] [id number] [facility] 2018-12-29 16:30:00 2018-12-29 16:30:[address] [facility] [id number] [facility] 2018-10-07 09:30:00 2018-10-07 09:30:[address] [facility] [id number] [facility] 2018-10-06 14:50:00 2018-10-06 14:50:00 [facility] [id number] [facility] 2018-07-09 13:30:00 2018-07-09 13:30:[address] [facility] [id number] [facility] 2018-04-12 08:34:00 2018-04-12 08:34:[address] [facility] [id number] [facility] 2018-04-09 15:15:00 2018-04-09 15:15:[address] [facility] [id number] [facility] 2018-03-12 10:05:00 2018-03-12 10:05:[address] [facility] [id number] [facility] 2018-02-19 15:45:00 2018-02-19 15:45:[address] [facility] [id number] [facility] Results Test Description Test Time Test Comments Results Result Co mments Source CBC W/AUTO [id number] 05:55:00* Test Item Value Reference Range Interpretation Comme nts WHITE BLOOD CELL (test code = WBC) [...] 27-34 H MEAN CELL HGB CONCENTRATION (test code = MCHC) 34.2 g/dL 30.8-34.1 H RED CELL DISTRIBUTION WIDTH (test code = RDW) 12.4 % 11-16 N PLT (test code = PLT) 251 K/mm3 130-400 N MEAN PLATELET VOLUME (test c ode = MPV) 11.0 fL 8.9-12.1 N NEUTROPHIL % (test code = NT%) 65.3 [...] K/mm3 0.02-0.10 N MANUAL DIFF REQUIRED (test c ode = MDIFF) NO MANUAL DIFF NUCLEATED RED BLOOD CELL (te st code = NRBC) 0 % 0-0 N C REACTIVE [id number] 22:10:00* Test Item Value Reference Range Interpretation Comme nts C REACTIVE PROTEIN (test cod e = CRP) < 0.2 mg/dL <0.9 ACUTE HEPATITIS [id number] 22:10:00* Test Item Value Reference Range Interpretation Comme nts AB HEPATITIS A IGM (test cod e = HAVMAB) NONREACTIVE NONREACTIVE AG HEPATITIS B SURFACE (test code = HBSAG) NONREACTIVE NONREACTIVE AB HEPATITIS B CORE IGM (gennaro t code = HBCMAB) NONREACTIVE NONREACTIVE AB HEPATITIS C (test code = HCVAB) NONREACTIVE NONREACTIVE SIGNAL TO CUTOFF (test code = CUTOFF) < 0.02 <0.80 AB HIV 22:10:00* Test Item Value Reference Range Interpretation Comme nts AB HIV 1 (test code = HIV1AB) NONREACTIVE NONREACTIVE Done by [employer] 4th Gen HIV Ag/Ab Combo Screen ACUTE HEPATITIS [id number] 22:10:00* Test Item Value Reference Range Interpretation Comme nts AB HEPATITIS A IGM (test cod e = HAVMAB) NONREACTIVE NONREACTIVE AG HEPATITIS B SURFACE (test code = HBSAG) NONREACTIVE NONREACTIVE AB HEPATITIS B CORE IGM (gennaro t code = HBCMAB) NONREACTIVE NONREACTIVE AB HEPATITIS C (test code = HCVAB) NONREACTIVE NONREACTIVE SIGNAL TO CUTOFF (test code = CUTOFF) <0.02 <0.80 N AB HIV 1 22:10:00* Test Item Value Reference Range Interpretation Comme nts AB HIV 1 2 (test code = [id number]) NONREACTIVE NONREACTIVE Done by [employer] 4th Gen HIV Ag/Ab Combo Screen CBC W/AUTO [id number] 17:17:00* Test Item Value Reference Range Interpretation Comme nts WHITE BLOOD CELL (test code = WBC) [...] 27-34 N MEAN CELL HGB CONCENTRATION (test code = MCHC) 34.5 g/dL 30.8-34.1 H RED CELL DISTRIBUTION WIDTH (test code = RDW) 13.2 % 11-16 N PLT (test code = PLT) 279 K/mm3 130-400 N MEAN PLATELET VOLUME (test c ode = MPV) 11.0 fL 8.9-12.1 N NEUTROPHIL % (test code = NT%) 52.1 [...] K/mm3 0.02-0.10 N MANUAL DIFF REQUIRED (test c ode = MDIFF) NO MANUAL DIFF NUCLEATED RED BLOOD CELL (te st code = NRBC) 0 % 0-0 N SED [id number] 17:17:00* Test Item Value Reference Range Interpretation Comme nts SED RATE (test code = SEDW) 17 mm/hr 0-15 H COMPREHENSIVE METABOLIC [id number] 16:53:00* Test Item Value Reference Range Interpretation Comme nts SODIUM (test code = NA) 138 mmol/L 136-145 N POTASSIUM (test code = K) 4.4 mmol/L 3.5-5.1 N CHLORIDE (test code = CL) 98.0 mmol/L 98-107 N CARBON DIOXIDE (test code = CO2) 29.5 mmol/L 21-32 N GLUCOSE (test code = GLU) 100 mg/dL 70-110 N BLOOD UREA NITROGEN (test code = BUN) 25 mg/dL 7-18 H GLOMERULAR FILTRATION RATE (test code = GFR) 67.4 >60 Unit of m easure: mL/min/1.73 [id number] Range:Healthy Adults >90 mL/min/1.73 m2 For Chronic Kidney Disease: Stage II Mild Decrease in GFR 60-90 Stage III Moderate Decrease in GFR 30-59 Stage IV Severe Decrease in GFR 15-29 Stage V Kidney Failure <15 CREATININE (test code = CREAT) 1.17 mg/dL 0.55-1.30 N TOTAL PROTEIN (test code = PROT) 8.3 g/dL 6.4-8.2 H ALBUMIN (test code = ALB) 4.5 g/dL 3.4-5.0 N GLOBULIN (test code = GLOB) 3.8 g/dL 2.2-4.2 N ALBUMIN/GLOBULIN RATIO (test code = A/G) 1.2 0.7-2.0 N CALCIUM (test code = CA) 10.4 mg/dL 8.2-10.1 H BILIRUBIN TOTAL (test code = BILT) 0.90 mg/dL 0.2-1.00 N SGOT/AST (test code = AST) 108.0 U/L 15-37 H SGPT/ALT (test code = ALT) 157.0 U/L 12-78 H VERIFIED BY REPE AT ANALYSIS.CRITICAL VALUE CALLED TO BRILEYREAD BACK & CONFIRMED? KATELYN [email or web address].CD 08/09/21 1651RESULTS FAXED TO THE DOCTOR'S OFFICE.Please note new normal range. ALKALINE PHOSPHATASE TOTAL (test code = ALKP) 64 U/L 46-116 N PROTHROMBIN [id number] 16:21:00* Test Item Value Reference Range Interpretation Comme nts PROTHROMBIN TIME PATIENT (test code = PTP) 10.5 secs 10.1-12.5 N INTERNATIONAL NORMAL RATIO (test code = INR) 0.92 <2.0 RECOMMENDED THER APEUTIC RANGE FOR ORAL ANTICOAGULANTTREATMENT: CONDITION INRProphylaxis of venous thrombosis in 2.0 - 3.0 high-risk medical or surgical patientsTreatment of venous thrombosis 2.0 - 3.0Prevention of embolism 2.0 - 3.0Prevention of recurrent embolism, or 3.0 - 4.5 patients with mechanical prosthetic intravascular valves IS PATIENT ON ANTICOAGULANTS ? NHas Lab been notified if Patient is on Heparin Drip? NOIf Yes, order CBC, OCCULT BLOOD, PT every other day NTHROMBOPLASTIN TIME [id number] 16:21:00* Test Item Value Reference Range Interpretation Comme nts PTT ACTIVATED (test code = APTT) 31.4 secs 24.9-37.0 N IS PATIENT ON ANTICOAGULANTS ? Critical access hospital Lab been notified if Patient is on Heparin Drip? NOIf Yes, order CBC, OCCULT BLOOD, PT every other day N- MRI LOW EXT W/O CONT [id number] 12:44:00 [facility] 1975 Sex: M Patient Name: RAMAN MARTINEZ Unit No: [id number] EXAMS: CPT CODE: [id number] MRI LOW EXT W/[place] [address] TECHNIQUE: Multiplanar multisequence images of the right [...] Darío Reyna M.D. CC: Technologist: NITZA MOBLEY, MRI Transcribed D/ (6738) [facility]: [facility] [address] [facility] [address] PHYS: [email or web address] - Kenrick Celaya MD : AGE: 46 SEX: M [place], [place] [address] LOC: Y.PRE PHONE #: [phone] DATE: 08/09/2021 STATUS: PRE SDC FAX #: [phone] RAD #: D/C DT PAGE 1 Signed Report Patient Name: RAMAN MARTINEZ Unit No: [id number] EXAMS: CPT CODE: [id number] MRI LOW EXT W/[place] [address] (Continued) Orig Print D/T: S: 08/09/2021 (1247) [facility] NAME: RAMAN MARTINEZ [address] [facility] PHYS: DEEPTHI. - Kenrick Celaya MD : 1975 AGE: 46 SEX: M [place] [id number] LOC: Y.PRE PHONE #: [phone] EXAM DATE: 08/09/2021 STATUS: PRE SDC FAX #: [phone] RAD #: D/C DT PAGE 2 Signed ReportLipid [id number] 00:00:00* Test Item Value Reference Range Interpretation Comme nts Cholesterol, Total (test code = 2093-3) 172 100-199 Triglycerides (test code = 2571-8) 66 0-149 HDL Cholesterol (test code = 2085-9) 94 >39 Notes Date/Time Note Provider Source 2024-09-02 08:57:51 Chief Complaint Patient presents with Physical Patient is not fasting for Fela Higgins LVN [facility] 2021-09-20 13:19:00 [facility] Discharge Summary REPORT#:[id number] REPORT STATUS: Signed DATE:09/20/21 TIME: 1319 PATIENT: RAMAN MARTINEZ UNIT #: [id number] ROOM/BED: : 76 AGE: 46 SEX: M ATTEND: Kenrick Celaya MD ADM AUTHOR: Gloria Kendrick * ALL edits or amendments must be made on the electronic/computer document * General Information Date of admission: Observation Start Date: Date of admission: 09/19/21 Discharge date: 09/20/21 Hospital course: On 09.19.21 the patient underwent right tibia screw removal, I D and deep cultures. Consultants: infectious disease, internal medicine, pain management Pt. condition on discharge: stable Allergies: Allergies: No Known Allergies (Coded, 08/09/21) Med Rec Med Rec Discharge meds: Continue taking these medications: TELMISARTAN/HCTZ (MICARDIS HCT 80/25 MG) 80 MG-25 MG TAB 1 TABLET ORAL DAILY. Comments: 80/25 MG OMEPRAZOLE ER (OMEPRAZOLE ER) 20 MG CAP.DR 20 MILLIGRAM ORAL DAILY. SULFAMETHOXAZOLE/TMP (BACTRIM DS 800/160 MG) 800 MG-160 MG TAB 1 TABLET ORAL TWICE DAILY. Qty = 84 Instructions: TAKE 1 TABLET TWICE A DAY FOR 6 WEEKS Start taking the following new medications: ASPIRIN (ASPIRIN) 81 MG TAB.CHEW 81 MILLIGRAM ORAL DAILY. Qty = 30 No Refills Discharge Instructions Discharge Instructions Additional Discharge Routines: Wound/Dressing Care, Add. instructions )( Activity: No Weight Bearing Right )( Wound/dressing care: Keep wound clean and dry, Leave dressing in place )( Additional instructions: Take 81 mg aspirin daily once home for DVT prophylaxis. at 1322 at 1424 RPT #:[id number] END OF REPORT [facility] 2021-09-20 10:06:00 [facility] ([facility]) Clinical Note REPORT#:[id number] REPORT STATUS: Signed DATE:09/20/21 TIME: 1006 PATIENT: RAMAN MARTINEZ UNIT #: [id number] ROOM/BED: Y.O17-A : 77 AGE: 46 SEX: M ATTEND: Kenrick Celaya MD ADM AUTHOR: Raman Horta MD * ALL edits or amendments must be made on the electronic/computer document * Clinical Note Note: [facility] Raman Chaudhari M.D. (cell text [phone]) Patient left before being seen, labs looked ok. Raman Chaudhari M.D. at 1120 RPT #:[id number] END OF REPORT [facility] 2021-09-20 09:16:00 [facility] ([facility]) Orthopaedic Progress Note REPORT#:[id number] REPORT STATUS: Signed DATE:09/20/21 TIME: 915 PATIENT: RAMAN MARTINEZ UNIT #: [id number] ROOM/BED: : 76 AGE: 46 SEX: M ATTEND: Kenrick Celaya MD ADM AUTHOR: Gloria Kendrick * ALL edits or amendments must be made on the electronic/computer document * Subjective Patient reports: Yes: pain, pain controlled. No: ambulating with therapy. Objective VS: Last Documented: Result Date Time Pulse Ox 96 09/20 730 B/P 107/68 09/20 730 B/P Mean 81.0 09/20 730 O2 Delivery Room air 09/20 730 Temp 36.5 09/20 730 Pulse 74 09/20 730 Resp 18 09/20 730 FiO2 32 09/20 438 O2 Flow Rate 3 09/20 438 PATIENT WEIGHT: Weight (lb): 174 Weight (oz): 2.64 Weight (kg): 79.000 Medications: Active Meds + DC'd Last 24 Hrs Magnesium Hydroxide (MILK OF MAGNESIA) 30 ML BEDTIME PRN PRN PO Methocarbamol (ROBAXIN) 500 MG ANES Q6H PRN PRN PO Hydrochlorothiazide (HYDRODIURIL) 25 MG DAILY PO Pantoprazole Sodium Sesquihydrate (PROTONIX) 40 MG DAILY PO Telmisartan/Hydrochlorothiazide (Micardis Hct 40-12.5 MG Tablet) 2 EACH DAILY PO (CANr) Valsartan (DIOVAN) 320 MG DAILY PO Enoxaparin Sodium (LOVENOX) 40 MG DAILY 0600 SUBQ Methocarbamol (ROBAXIN) 500 MG ANES Q6HR PO Cefazolin Sodium (KEFZOL) 2 GM Q8H IV (CAN) Vancomycin HCl (VANCOCIN (FOR COMPOUND)) 1.25 GM Q12H IV Sodium Chloride (SODIUM CHLORIDE 0.9%) 250 ML Cefepime HCl (Cefepime HCl) 1 GM Q8H IV Sodium Chloride (SODIUM CHLORIDE 0.9%) 100 ML Lactated Ringer's (LACTATED RINGERS) 1,000 ML .Q20H IV Pharmacy Profile Note (CLARIFICATION NEEDED) LOSARTAN/HCTZ Nurse Do not delete this Rx. Pharmacy will delete. To remove the admin time, use FD (full document) Given = No Q2HR PO (DC) Cefazolin Sodium (KEFZOL) 2 GM .STK-MED ONE IV (DC) Ephedrine Sulfate (ePHEDrine sulfate) 50 MG .STK-MED ONE IV (DC) Fentanyl Citrate (SUBLIMAZE) 100 MCG .STK-MED ONE IV (DC) Lactated Ringer's (LACTATED RINGERS) 1,000 ML .STK-MED ONE IV (DC) Lidocaine HCl (XYLOCAINE PF) 5 ML .STK-MED ONE IV (DC) Midazolam HCl (VERSED) 5 MG .STK-MED ONE IV (DC) Ondansetron HCl (ZOFRAN) 4 MG .STK-MED ONE IV (DC) Propofol (DIPRIVAN) 200 MG .STK-MED ONE IV (DC)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
[2025-03-02] MEDS ORDERED: NA CHLORIDE 0.9% 1,000 ML ONE (19:16)
[2025-03-02] MEDS ORDERED: ACETAMINOPHEN 500 MG TAB ONE (19:16)
[2025-03-02 19:52] LABS: PT Prothrombin Time 11.4 SECONDS (10-13.0); PTT, Activated Partial Thromb 30.8 SECONDS (27.2-37.4)
[2025-03-02 19:58] LABS: Albumin 3.8 g/dL (3.4-5.0); Albumin/Globulin Ratio 0.8 (1.1-1.8); Anion Gap 9.7 mEq/L (5.0-15.0); Bilirubin Total 0.5 mg/dL (0.2-1.0); Globulin 4.5 g/dL (2.3-3.5); Potassium 3.7 mEq/L (3.5-5.1); Protein, Total 8.3 g/dL (6.4-8.2)
[2025-03-02 20:03] LABS: Specific Gravity 1.017 (1.005-1.030); Sqamous Epithelial None Seen /HPF (None Seen); Urine Bacteria None Seen /HPF (<20); Urine Bilirubin NEGATIVE (Negative); Urine Blood 2+ (Negative); Urine Clarity Extremely Turbid (Clear); Urine Color Light-Yellow (Yellow); Urine Crystals Unidentified Few /HPF (None Seen); Urine Culture Reflex Order REFLEXED; Urine Glucose NEGATIVE (Negative); Urine Ketones NEGATIVE (Negative); Urine Microscopic Reflex YN ORDER UMIC; Urine Nitrite NEGATIVE (Negative); Urine Protein 1+ (Negative); Urine RBC 21-50 /HPF (None Seen); Urine Urobilinogen Normal (Normal); Urine WBC >50 /HPF (<5)
[2025-03-02 20:27] LABS: Absolute Basophils 0.1 K/uL (0-0.5); Absolute Eosinophils 0.1 K/uL (0-0.5); Absolute Lymphocytes (CBC) 2.2 K/uL (0.7-4.9); Absolute Monocytes 1.2 K/uL (0.1-1.3); Basophils % 0.4 % (0-1.3); Eosinophils % 0.5 % (0-4.4); Hematocrit 48.6 % (39.6-49.0); Lymphocytes % 11.4 % (15.3-44.8); MCH 34.2 pg (27.0-35.0); MCV 97.8 fL (80-100); MPV 9.8 fL (7.6-11.3); Monocytes % 5.9 % (3.3-12.3); Neutrophils % 81.8 % (41.7-73.7); Nucleated Red Blood Cells % 0.1 % (0-0); Platelets 200 thou/uL (152-406); RBC Red Blood Cell Count 4.97 M/uL (4.33-5.43); Red Cell Distribution Width 13.7 % (12.1-15.2)
--- NOTE | 2025-03-02 21:15 | RAD REPORT ---
EXAMINATION: CT Abdomen Pelvis W Contrast CLINICAL INDICATION: Male, 49 years old. urinary symptoms TECHNIQUE: CT abdomen and pelvis was performed, after the administration of IV contrast, [facility]. Axial, sagittal and coronal reconstructions were obtained. One or more of the following dose reduction techniques were used: Automated exposure control, adjustment of the mA and k V according to patient size, and iterative reconstruction. Unless otherwise specified, incidental findings do not require dedicated imaging follow-up. COMPARISON: 05/29/2013 FINDINGS: LOWER CHEST: The visualized lung bases are clear. LIVER: Normal in size and contour. No focal lesion. BILIARY SYSTEM: No suspicious abnormalities. SPLEEN: Normal size. No focal lesion. PANCREAS: No mass, ductal dilation, or david-pancreatic fluid. ADRENALS: Normal; no mass. KIDNEYS: Normal size and contour. No hydronephrosis. URINARY BLADDER: Decompressed limiting evaluation. Mild pericystic fat stranding however noted.. GASTROINTESTINAL TRACT: No evidence of free air, significant intra-abdominal free fluid, bowel obstru ction or abscess. Mild distal colonic diverticulosis without evidence of acute diverticulitis. APPENDIX: Normal appendix. LYMPH NODES: No lymphadenopathy. MUSCULOSKELETAL: No acute or suspicious osseous abnormality. ADDITIONAL FINDINGS: Fat stranding surrounding the seminal vesicle bilaterally.. No abnormal fluid co llections. IMPRESSION: Mild pericystic fat stranding noted although bladder is decompressed which limits evaluation. Mild fa t stranding around the seminal vesicles as well. Findings may relate to a genitourinary infectious or inflammatory process. No other acute or concerning abnormalities seen in the abdomen or pelvis.
[2025-03-02] MEDS ORDERED: CIPROFLOXACIN 400mg IV 400 MG/200 ML BAG IV ONE (21:21)
--- NOTE | 2025-03-02 21:40 | EDPHYS ---
Physician Documentation [facility] Name: Raman Martinez Age: 49 yrs Sex: Male : 1975 Arrival Date: 03/02/2025 Time: 17:48 Bed 5 Private MD: ED Physician Santosh Chau HPI: 03/02 21:43 This 49 yrs old Male presents to ER via Ambulatory with complaints of Urinary Problem. sb4 21:43 Abdominal bloating, difficulty urinating, and blood at the end of his stream for a few sb4 days now. Went to urgent care and was noted to be hypertensive and febrile and sent here for further evaluation. Denies any known fever, chills, nausea, vomiting, diarrhea, flank pain. Denies any history of UTIs or stones. Historical: - Allergies: 18:59 No Known Allergies; cm10 - PMHx: 18:59 Hypertension; Gout; cm10 - Immunization history:: Adult Immunizations up to date. - Infectious Disease History:: Denies. - Social history:: Smoking status: Patient reports the use of cigarette tobacco products, smokes one-half pack cigarettes per day. ROS: 21:43 Constitutional: Negative for fever, chills, and weight loss, sb4 21:43 : Positive for urinary symptoms, small amounts, difficulty urinating, 21:43 All other systems are negative, Exam: 21:43 Constitutional: This is a well developed, well nourished patient who is awake, alert, sb4 and in no acute distress. Head/Face: Normocephalic, atraumatic. Eyes: Extra-ocular motions intact. Periorbital areas with no swelling, redness, or edema. ENT: Mucous membranes moist. Cardiovascular: Regular rate and rhythm with a normal S1 and S2. Respiratory: No increased work of breathing, no retractions or nasal flaring. Abdomen/GI: Soft, non-tender, no distension. Skin: Warm, dry with normal turgor. Normal color with no rashes, no lesions, and no evidence of cellulitis. MS/ Extremity: Pulses equal, no cyanosis. Neurovascular intact. Full, normal range of motion. Neuro: Awake and alert, GCS 15, oriented to person, place, time, and situation. Motor strength 5/5 in all extremities. Sensory grossly intact. Vital Signs: 18:58 BP 170 / 107; Pulse 101; Resp 19; Temp 101.1(O); Pulse Ox 97% on R/A; Weight 87.09 kg; cm10 Height 5 ft. 11 in. ; Pain 0/10; 19:06 BP 197 / 126; Pulse 93; Resp 18; Pulse Ox 99% ; al5 19:30 BP 162 / 100; Pulse 92; Resp 18; Pulse Ox 99% ; al5 20:00 BP 168 / 97; Pulse 93; Resp 16; Pulse Ox 96% ; al5 20:15 Temp 98.7(O); al5 20:30 BP 165 / 100; Pulse 92; Resp 18; Pulse Ox 98% ; al5 21:00 BP 169 / 101; Pulse 87; Resp 17; Pulse Ox 96% ; al5 21:30 BP 160 / 93; Pulse 88; Resp 17; Pulse Ox 98% ; al5 22:00 BP 155 / 81; Pulse 99; Resp 17; Pulse Ox 96% ; al5 18:58 Body Mass Index 26.78 (87.09 kg, 180.34 cm) cm10 18:58 Pain Scale: Adult cm10 MDM: 18:54 Medical Screening Exam initiated sb4 21:44 Differential diagnosis: UTI, Pylonephritis, nephrolithiasis ureterolithiasis, sb4 prostatitis. Data reviewed: vital signs, nurses notes, lab test result(s), EKG, radiologic studies, and as a result, I will discharge patient. Counseling: I had a detailed discussion with the patient and/or guardian regarding the historical points, exam findings, and any diagnostic results supporting the discharge/admit diagnosis, the presence of at least one elevated blood pressure reading (>120/80) during this emergency department visit, lab results, radiology results, the need for outpatient follow up, for definitive care, to return to the emergency department if symptoms worsen or persist or if there are any questions or concerns that arise at home. ED course: Patient symptoms have improved. He is urinating without any difficulty now. White blood cell count is elevated at 19,000 but heart rate and temperature have improved. Lactate is within normal limits. I have given 1 dose of antibiotics and will discharge home on p.o. antibiotics. He is instructed to return for any worsening fever, difficulty urinating, or worsening symptoms. Patient is in agreement with plan. 05/15 19:01 Order name: Blood Culture Adult (2) sb4 03/02 19:01 Order name: CBC with Diff; Complete Time: 20:30 sb4 03/02 19:01 Order name: CMP; Complete Time: 19:59 sb4 03/02 19:01 Order name: Lactate w/ 2H reflex if indic.; Complete Time: 20:06 sb4 03/02 19:01 Order name: Protime (+inr); Complete Time: 19:52 sb4 03/02 19:01 Order name: Ptt, Activated; Complete Time: 19:52 sb4 03/02 19:22 Order name: UA Rfx Brown Cult if indicated; Complete Time: 20:06 km10 03/02 20:09 Order name: Urine Culture EDRI 03/02 19:01 Order name: CT Abd/Pelvis - IV Contrast Only; Complete Time: 21:16 sb4 03/02 19:01 Order name: EKG; Complete Time: 19:02 sb4 03/02 19:01 Order name: Cardiac monitoring; Complete Time: 19:37 sb4 03/02 19:01 Order name: EKG - Nurse/Tech; Complete Time: 19:37 sb4 03/02 19:01 Order name: IV Saline Lock - Large Bore; Complete Time: 19:37 sb4 03/02 19:01 Order name: Labs collected and sent; Complete Time: 19:37 sb4 03/02 19:01 Order name: O2 Per Protocol; Complete Time: 19:37 sb4 03/02 19:01 Order name: O2 Sat Monitoring; Complete Time: 19:37 sb4 03/02 19:01 Order name: Vital Signs; Complete Time: 19:37 sb4 03/02 19:02 Order name: Bladder Scanner; Complete Time: 20:14 sb4 EC:40 Rate is 96 beats/min. Rhythm is regular, Normal Sinus Rhythm. MO interval is normal at sb4 152 msec. QRS interval is normal at 86 msec. QT interval is normal at 340 msec. No Q waves. T waves are Normal. No ST changes noted. Clinical impression: No evidence of ischemia. Interpreted by me. Reviewed by me. Administered Medications: 19:16 Drug: Acetaminophen PO 1000 mg PO once Route: PO; al5 20:15 Follow up: Response: No adverse reaction; Temperature is decreased al5 20:14 Drug: NS 0.9% IV 1000 ml IV at 1 bolus Per protocol; to be given as a bolus over 60 al5 minutes Route: IV; Rate: 1 bolus; Site: right antecubital; 21:35 Follow up: Response: No adverse reaction; IV Status: Completed infusion; IV Intake: al5 1000ml 21:35 Drug: Ciprofloxacin IVPB 400 mg 200 ml IVPB once over 60 mins Volume: 200 ml; Route: al5 IVPB; Infused Over: 60 mins; Site: right antecubital; 22:28 Follow up: Response: No adverse reaction; IV Status: Completed infusion; IV Intake: al5 200ml Disposition Summary: 03/02/25 21:40 Discharge Ordered Notes: Location: Home sb4 Problem: new sb4 Symptoms: have improved sb4 Condition: Stable sb4 Diagnosis - UTI/ Urinary tract infection, site not specified sb4 Followup: sb4 - With: Emergency Department - When: As needed - Reason: Fever > 102 F, Worsening of condition Discharge Instructions: - Discharge Summary Sheet sb4 - Urinary Tract Infection, Adult sb4 Forms: - Antibiotic Education sb4 - Patient Portal Instructions sb4 - Leadership Thank You Letter sb4 Prescriptions: - Cipro 500 mg Oral Tablet - take 1 tablet ORAL route every 12 hours for 7 days; 14 tablet; Refills: 0, sb4 Product Selection Permitted Signatures: Dispatcher [employer] Love Dewitt PA-C PA-C sb4 Clarita Kumari, RN RN cm10 Marisol Islas RN RN al5 Corrections: (The following items were deleted from the chart) 19:00 18:59 Social history: Smoking status: Patient reports the use of cigarette tobacco cm10 products, unknown amount cm10 19:22 19:22 UA Rfx Brown Cult if indicated+U.LAB.BRZ ordered. EDMS EDMS 19:37 19:01 Accucheck ordered. sb4 al5
--- NOTE | 2025-03-02 21:40 | ER ---
Nurse's Notes [facility] Name: Raman Martinez Age: 49 yrs Sex: Male : 1975 Arrival Date: 03/02/2025 Time: 17:48 Bed 5 Private MD: Diagnosis: UTI/ Urinary tract infection, site not specified Presentation: 03/02 18:58 Chief complaint: Patient states: Difficulty urinating onset Thursday. pt states that he cm10 had flank pain last week that resolved. Coronavirus screen: Client denies travel out of the [place] in the last 14 days. Ebola Screen: Patient denies travel to an Ebola-affected area in the 21 days before illness onset. Initial Sepsis Screen: Does the patient meet any 2 criteria? Temp <36.0*C (96.8*F)) or > 38.3*C (100.9*F). HR > 90 bpm. Does the patient have a suspected source of infection? No. Patient's initial sepsis screen is negative. If YES to both, name of provider notified: Love Boogie PA-C. Risk Assessment: Do you want to hurt yourself or someone else? Patient reports no desire to harm self or others. Onset of symptoms was March 02, 2025. 18:58 Method Of Arrival: Ambulatory cm10 18:58 Acuity: JASON 2 cm10 Triage Assessment: 19:00 General: Appears in no apparent distress. uncomfortable, Behavior is calm, cooperative. cm10 Neuro: No deficits noted. Level of Consciousness is awake, alert, obeys commands, Oriented to person, place, time, situation, Appropriate for age. Respiratory: No deficits noted. Airway is patent Respiratory effort is even, unlabored, Respiratory pattern is regular, symmetrical. : Reports inability to void. Historical: - Allergies: 18:59 No Known Allergies; cm10 - PMHx: 18:59 Hypertension; Gout; cm10 - Immunization history:: Adult Immunizations up to date. - Infectious Disease History:: Denies. - Social history:: Smoking status: Patient reports the use of cigarette tobacco products, smokes one-half pack cigarettes per day. Screenin:37 [facility] ED Fall Risk Assessment (Adult) History of falling in the last 3 months, al5 including since admission No falls in past 3 months (0 pts) Confusion or Disorientation No (0 pts) Intoxicated or Sedated No (0 pts) Impaired Gait No (0 pts) Mobility Assist Device Used No (0 pt) Altered Elimination No (0 pt) Score/Fall Risk Level 0 - 2 = Low Risk Oriented to surroundings, Maintained a safe environment, Hourly rounding (assess needs \T\ fall precautionary measures) done. Abuse screen: Denies threats or abuse. Denies injuries from another. Nutritional screening: No deficits noted. Tuberculosis screening: No symptoms or risk factors identified. Assessment: 19:38 General: Appears in no apparent distress. comfortable, Behavior is calm, cooperative. al5 Pain: Complains of pain in suprapubic area. Pain:. Neuro: Level of Consciousness is awake, alert, obeys commands, Oriented to person, place, time, situation. Cardiovascular: Capillary refill < 3 seconds Patient's skin is warm and dry. Respiratory: Airway is patent Respiratory effort is even, unlabored, Respiratory pattern is regular, symmetrical. GI: Abdomen is flat, non-distended. : Urine is cloudy, Reports inability to void, pain in suprapubic area flank(s), urgency, urinary frequency. EENT: No signs and/or symptoms were reported regarding the EENT system. Derm: Skin is intact, is healthy with good turgor, Skin is pink, warm \T\ dry. normal. Musculoskeletal: No signs and/or symptoms reported regarding the musculoskeletal system. 20:15 Reassessment: Patient appears in no apparent distress at this time. No changes from al5 previously documented assessment. Patient and/or family updated on plan of care and expected duration. Pain level reassessed. Patient is alert, oriented x 3, equal unlabored respirations, skin warm/dry/pink. fever decreased, bladder scanned patient and showed only 75 mL in the bladder. 21:41 Reassessment: Patient appears in no apparent distress at this time. No changes from al5 previously documented assessment. Patient and/or family updated on plan of care and expected duration. Pain level reassessed. Patient is alert, oriented x 3, equal unlabored respirations, skin warm/dry/pink. discharge pending antibiotics. 22:29 Reassessment: Patient appears in no apparent distress at this time. No changes from al5 previously documented assessment. Patient and/or family updated on plan of care and expected duration. Pain level reassessed. Patient is alert, oriented x 3, equal unlabored respirations, skin warm/dry/pink. Vital Signs: 18:58 BP 170 / 107; Pulse 101; Resp 19; Temp 101.1(O); Pulse Ox 97% on R/A; Weight 87.09 kg; cm10 Height 5 ft. 11 in. ; Pain 0/10; 19:06 BP 197 / 126; Pulse 93; Resp 18; Pulse Ox 99% ; al5 19:30 BP 162 / 100; Pulse 92; Resp 18; Pulse Ox 99% ; al5 20:00 BP 168 / 97; Pulse 93; Resp 16; Pulse Ox 96% ; al5 20:15 Temp 98.7(O); al5 20:30 BP 165 / 100; Pulse 92; Resp 18; Pulse Ox 98% ; al5 21:00 BP 169 / 101; Pulse 87; Resp 17; Pulse Ox 96% ; al5 21:30 BP 160 / 93; Pulse 88; Resp 17; Pulse Ox 98% ; al5 22:00 BP 155 / 81; Pulse 99; Resp 17; Pulse Ox 96% ; al5 18:58 Body Mass Index 26.78 (87.09 kg, 180.34 cm) cm10 18:58 Pain Scale: Adult cm10 ED Course: 17:49 Patient arrived in ED. im 18:54 Love Boogie PA-C is PHCP. sb4 18:54 Santosh Chau MD is Attending Physician. sb4 18:59 Triage completed. cm10 18:59 Arm band placed on right wrist. Patient placed in an exam room, on a stretcher. cm10 19:36 Marisol Islas, DONALD is Primary Nurse. al5 19:37 Patient has correct armband on for positive identification. Bed in low position. Call al5 light in reach. Side rails up X 1. Provided Education on: plan of care, bladder scanner. 19:37 No provider procedures requiring assistance completed. Inserted saline lock: 20 gauge al5 in right antecubital area, using aseptic technique. Blood collected. Flushed with 10 mL NS. 20:27 CT Abd/Pelvis - IV Contrast Only In Process Unspecified. EDMS 22:30 IV discontinued, intact, bleeding controlled, No redness/swelling at site. Pressure al5 dressing applied. Administered Medications: 19:16 Drug: Acetaminophen PO 1000 mg PO once Route: PO; al5 20:15 Follow up: Response: No adverse reaction; Temperature is decreased al5 20:14 Drug: NS 0.9% IV 1000 ml IV at 1 bolus Per protocol; to be given as a bolus over 60 al5 minutes Route: IV; Rate: 1 bolus; Site: right antecubital; 21:35 Follow up: Response: No adverse reaction; IV Status: Completed infusion; IV Intake: al5 1000ml 21:35 Drug: Ciprofloxacin IVPB 400 mg 200 ml IVPB once over 60 mins Volume: 200 ml; Route: al5 IVPB; Infused Over: 60 mins; Site: right antecubital; 22:28 Follow up: Response: No adverse reaction; IV Status: Completed infusion; IV Intake: al5 200ml Medication: 19:37 VIS not applicable for this client. al5 Intake: 21:35 IV: 1000ml; Total: 1000ml. al5 22:28 IV: 200ml; Total: 1200ml. al5 Outcome: 21:40 Discharge ordered by . sb4 22:30 Discharged to home ambulatory, al5 22:30 Condition: good 22:30 Discharge instructions given to patient, Instructed on discharge instructions, follow up and referral plans. medication usage, Demonstrated understanding of instructions, follow-up care, medications, Prescriptions given X 1, 22:37 Patient left the ED. ha1 Signatures: Dispatcher [employer] EDMS Arleth Bynum RN RN ha1 Love Boogie PALeonidesC PACelio sb4 Carmen Mike Clarissa, RN RN cm10 Marisol Islas RN RN al5 Corrections: (The following items were deleted from the chart) 19:00 18:59 Social history: Smoking status: Patient reports the use of cigarette tobacco cm10 products, unknown amount cm10 21:49 21:41 Reassessment: discharge pending antibiotics al5 al5
[2025-03-02 23:05] VITALS: TEMP 98.7
[2025-03-02 23:09] VITALS: BP 155/81; O2SAT 96
--- NOTE | 2025-03-06 16:53 | EKG ---
Test Date: 2025-03-02 Test Time: 19:31:03 Rheumatologist: ANALISA MEASUREMENT RESULTS: Intervals: Rate: 96 RI: 152 QRSD: 86 QT: 340 QTc: 429 [place]: P: 59 RI: 152 QRS: 102 T: 30 INTERPRETIVE STATEMENTS: Normal sinus rhythm Rightward axis Borderline ECG Compared to ECG 10/06/2017 07:43:15 Right-axis deviation now present Electronically Signed On 03-06-25 16:49:10 CDT by Raheem Rojas
== END 2025-03-02 22:37 | disposition home or self-care (01) ==
LOC: ER 17:48
DX: N39.0 Urinary tract infection, site not specified (principal); F17.210 Nicotine dependence, cigarettes, uncomplicated
CPT/HCPCS: 96365; 96361; 93005; 87040 ×2; 87088; 85025; 81001; 87086; 36415; 85610; 83605; 85730; 87077; 87186; 80053; 74177; 99284; Q9967; J0744; J7030